=== PATIENT | male | born 1980 | race Caucasian/White ===

== ENCOUNTER 2022-04-07 09:36 | Emergency (ER) | payer OTHER ==
--- NOTE | 2022-04-07 10:06 | RAD REPORT ---
EXAM DESCRIPTION: RAD - Chest Single View - 04/07/2022 10:01 am CLINICAL HISTORY: COUGH COMPARISON: <Comparisons> FINDINGS: Lines: None. Lungs: No evidence of edema or pneumonia. Pleural: No significant pleural effusions or pneumothorax. Cardiac: The heart size is within normal limits. Bones: No acute fractures. Other: IMPRESSION: No acute cardiopulmonary disease.
--- NOTE | 2022-04-07 10:06 | ER ---
Nurse's Notes [facility] Name: Gregg Rodriguez Age: 41 yrs Sex: Male : 1980 Arrival Date: 04/07/2022 Time: 09:39 Bed 7 Private MD: Diagnosis: Vomiting Presentation: 04/07 09:44 Chief complaint: Patient states: Sick for 2 weeks with N/V/D, fever. At home covid test ll1 positive 10 days ago. Now his vomit has blood streaks in it. Coronavirus screen: Vaccine status: Patient reports being unvaccinated. Client denies travel out of the [place] in the last 14 days. congestion, cough unrelated to allergies, diarrhea, fatigue, fever, nausea, vomiting. Client presents with at least one sign or symptom that may indicate coronavirus-19. Standard/surgical mask placed on the client. Ebola Screen: Patient denies travel to an Ebola-affected area in the 21 days before illness onset. Initial Sepsis Screen: Does the patient meet any 2 criteria? HR > 90 bpm. No. Patient's initial sepsis screen is negative. Does the patient have a suspected source of infection? Yes: Productive cough/pneumonia. Risk Assessment: Do you want to hurt yourself or someone else? Patient reports no desire to harm self or others. Onset of symptoms was March 21, 2022. 09:44 Acuity: RICO 3 ll1 09:44 Method Of Arrival: Ambulatory ll1 Triage Assessment: 09:47 General: Appears uncomfortable, Behavior is calm, cooperative, appropriate for age. ll1 Pain: Denies pain. GI: Reports cramping, diarrhea, gaseousness, intolerance of fluids, intolerance of food, nausea, vomiting. Historical: - Allergies: 09:47 No Known Allergies; ll1 - PMHx: 09:47 ulcers; ll1 - PSHx: 09:47 None; ll1 - Immunization history:: Client reports having NOT received the Covid vaccine. - Social history:: Smoking status: Patient denies any tobacco usage or history of. Screenin:17 Abuse screen: Denies threats or abuse. Nutritional screening: No deficits noted. jh6 Tuberculosis screening: No symptoms or risk factors identified. Fall Risk None identified. Assessment: 10:10 General: Appears in no apparent distress. Pain: Complains of pain in abdomen. GI: rosales Reports nausea, Pain is 6 out of 10 on a pain scale. vomiting. 10:10 Reassessment: pt refused blood work, and just wanted to be discharged. provider was rosales notified. Vital Signs: 09:44 BP 143 / 119; Pulse 105; Resp 18; Pulse Ox 98% on R/A; Weight 79.38 kg; Height 5 ft. 9 ll1 in. (175.26 cm); Pain 0/10; 09:44 Body Mass Index 25.84 (79.38 kg, 175.26 cm) 1 ED Course: 09:39 Patient arrived in ED. mr 09:40 Fe Sunshine [facility]. 7 09:40 Rachel Christensen MD is Attending Physician. 7 09:44 Arm band placed on. 1 09:47 Triage completed. 1 09:56 Fe Bernal, RN is Primary Nurse. 6 10:06 XRAY Chest (1 view) In Process Unspecified. EDMS Administered Medications: 09:51 CANCELLED (Physician Discretion): Pepcid (famotidine) 20 mg IVP once; dilute with 10 mL [facility] 0.9% NaCl; give over 2 minutes Outcome: 10:06 Discharge ordered by . 7 10:17 Patient left the ED. [facility] Signatures: Dispatcher [employer] EDPR Andie SherwoodEugenia, RN RN [facility] Fe Bernal, RN RN 6 Mirta-StagerLilian RN RN ha Hadash, Jennifer, FNP [place] [id number]
--- NOTE | 2022-04-07 10:06 | EDPHYS ---
Physician Documentation [facility] Name: Gregg Rodriguez Age: 41 yrs Sex: Male : 1980 Arrival Date: 04/07/2022 Time: 09:39 Bed 7 Private MD: ED Physician Rachel Christensen HPI: 04/07 09:47 This 41 yrs old Male presents to ER via Ambulatory with complaints of Vomiting Blood, jh7 fatigue. 09:47 Onset: The symptoms/episode began/occurred yesterday. Associated signs and symptoms: jh7 Pertinent positives: cough, Pertinent negatives: fever. Patient reports that he was diagnosed with COVID 10 days ago. States that he initially had coughing, diarrhea, and fever. States that he is still coughing, feels weak, and now started vomiting. States that his vomit has had some small streaks of blood in it, and has a history of peptic ulcers. States that his stomach is upset, but denies any abdominal tenderness.. Historical: - Allergies: 09:47 No Known Allergies; ll1 - PMHx: 09:47 ulcers; ll1 - PSHx: 09:47 None; ll1 - Immunization history:: Client reports having NOT received the Covid vaccine. - Social history:: Smoking status: Patient denies any tobacco usage or history of. ROS: 09:47 Respiratory: Positive for cough, Negative for hemoptysis, shortness of breath, wheezing.jh7 09:47 Abdomen/GI: Positive for vomiting, hematemesis, Negative for diarrhea. 09:51 Constitutional: Negative for fever, chills, and weight loss, ENT: Negative for injury, jh7 pain, and discharge, Neck: Negative for injury, pain, and swelling, Back: Negative for injury and pain, MS/Extremity: Negative for injury and deformity, Skin: Negative for injury, rash, and discoloration, Neuro: Negative for headache, weakness, numbness, tingling, and seizure. 09:51 All other systems are negative. Exam: 09:51 Constitutional: This is a well developed, well nourished patient who is awake, alert, jh7 and in no acute distress. Head/Face: Normocephalic, atraumatic. Eyes: Pupils equal round and reactive to light, extra-ocular motions intact. Lids and lashes normal. Conjunctiva and sclera are non-icteric and not injected. Cornea within normal limits. Periorbital areas with no swelling, redness, or edema. ENT: Nares patent. No nasal discharge, no septal abnormalities noted. Tympanic membranes are normal and external auditory canals are clear. Oropharynx with no redness, swelling, or masses, exudates, or evidence of obstruction, uvula midline. Mucous membranes moist. Neck: Trachea midline, no thyromegaly or masses palpated, and no cervical lymphadenopathy. Supple, full range of motion without nuchal rigidity, or vertebral point tenderness. No Meningismus. Cardiovascular: Regular rate and rhythm with a normal S1 and S2. No gallops, murmurs, or rubs. Normal PMI, no JVD. No pulse deficits. Respiratory: Lungs have equal breath sounds bilaterally, clear to auscultation and percussion. No rales, rhonchi or wheezes noted. No increased work of breathing, no retractions or nasal flaring. Abdomen/GI: Soft, non-tender, with normal bowel sounds. No distension or tympany. No guarding or rebound. No evidence of tenderness throughout. Back: No spinal tenderness. No costovertebral tenderness. Full range of motion. Skin: Warm, dry with normal turgor. Normal color with no rashes, no lesions, and no evidence of cellulitis. MS/ Extremity: Pulses equal, no cyanosis. Neurovascular intact. Full, normal range of motion. Neuro: Awake and alert, GCS 15, oriented to person, place, time, and situation. Sensory grossly intact. Normal gait. Vital Signs: 09:44 BP 143 / 119; Pulse 105; Resp 18; Pulse Ox 98% on R/A; Weight 79.38 kg; Height 5 ft. 9 ll1 in. (175.26 cm); Pain 0/10; 09:44 Body Mass Index 25.84 (79.38 kg, 175.26 cm) ll1 MDM: 09:53 Patient medically screened. 04/07 09:46 Order name: CBC with Diff 04/07 09:46 Order name: CMP 04/07 09:46 Order name: Lipase 04/07 09:46 Order name: CT Abd/Pelvis - IV Contrast Only 04/07 09:46 Order name: XRAY Chest (1 view) jh04/07 09:48 Order name: PT-INR [facility] 04/07 09:46 Order name: IV Saline Lock [facility] 04/07 09:46 Order name: Labs collected and sent [facility] Administered Medications: 09:51 CANCELLED (Physician Discretion): Pepcid (famotidine) 20 mg IVP once; dilute with 10 mL 7 0.9% NaCl; give over 2 minutes Disposition Summary: 04/07/22 10:06 Discharge Ordered Location: Home [facility] Problem: new [facility] Symptoms: are unchanged [facility] Condition: Stable [facility] Diagnosis - Vomiting 7 Followup: [facility] - With: Private Physician - When: 2 - 3 days - Reason: Recheck today's complaints Discharge Instructions: - Discharge Summary Sheet [facility] - Peptic Ulcer [facility] - Vomiting, Adult [facility] Forms: - Medication Reconciliation Form [facility] - Thank You Letter [facility] - Work release form eb Prescriptions: - ondansetron 4 mg Oral tablet,disintegrating - place 1 tablet by TRANSLINGUAL route 4 times per day As needed; 20 tablet; [facility] Refills: 0, Product Selection Permitted - Carafate 1 gram Oral Tablet - take 1 tablet by ORAL route 4 times per day take on an empty stomach, beginning jh7 on waking and last dose at bedtime; 100 tablet; Refills: 0, Product Selection Permitted - Nexium 20 mg Oral Capsule - take 1 capsule by ORAL route once daily; 20 capsule; Refills: 0, Product 7 Selection Permitted Signatures: Dispatcher [employer] Eugenia Bell RN RN ll1 Fe Sunshine, REFRIGERATION UNIT REPAIRER REFRIGERATION UNIT REPAIRER [facility] Corrections: (The following items were deleted from the chart) 09:50 09:47 This 41 yrs old Male presents to ER via Ambulatory with complaints of Vomiting jh7 Blood, fatigue. jh7 09:51 09:46 Pepcid (famotidine) 20 mg IVP once; dilute with 10 mL 0.9% NaCl; give over 2 jh7 minutes ordered. jh7 09:51 09:47 Respiratory: Positive for cough, Negative for hemoptysis, shortness of breath, jh7 wheezing, jh7
[2022-04-07] MEDS ORDERED: PANTOPRAZOLE 40 MG INJ ONE (10:07)
[2022-04-07] MEDS ORDERED: NA CHLORIDE 0.9% 0 ML ONE (10:07)
[2022-04-07] MEDS ORDERED: ONDANSETRON 4 MG/2 ML VIAL ONE (10:07)
[2022-04-07 10:27] VITALS: BP 143/119; O2SAT 98
== END 2022-04-07 10:17 | disposition home or self-care (01) ==
LOC: ER 09:36
DX: R11.10 Vomiting, unspecified (principal); R05.9 Cough, unspecified
CPT/HCPCS: 71045; 99282; C9113; J2405; J7030